=== PATIENT | female | born 1985 | race Caucasian/White ===

== ENCOUNTER 2018-07-03 03:16 | Emergency (ER) | payer BC, OTHER ==
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
[2018-07-03] MEDS ORDERED: NS 1,000 ML IV ONE (04:02)
[2018-07-03 04:10] LABS: PLATELET COUNT 285 10^3/uL (150-400)
[2018-07-03] MEDS ORDERED: IBUPROFEN 600 MG TAB PO ONE ×2 (07:27→07:29)
[2018-07-03 10:36] VITALS: BP 108/75
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
--- NOTE | 2018-07-03 13:02 | ASMTTCLDSP ---
TLC Discharge Disposition Disposition: Answers: Discharge If Answers: Yes DISCHARGED: Patient/family given suicide hotline info & SAMHSA brochure? Disposition Notes: Notes: Pt stated commitment or ability to keep self safe, denied thoughts/intentions to kill self or others. Pt stated strongly her desire to talk with a counselor and requested and was provided with literature on local bereavement support groups in [place]. Pt was given local hotline information and SAMHSA brochure After an Attempt and encouraged to follow up with [facility], as pt has [place] Medicaid, in process of applying for [place] Medicaid. Discharge Concerns/Recommendations: Notes: In consultation with [facility] ED physician, Chapin Palmer MD, Dr. Palmer concurred that pt does not appear to meet 27-65 criteria requiring psychiatric hospitalization as pt does not appear to be an imminent risk of harm to self/others/gravely disabled due to a mental illness condition. Dr. Palmer provided telephone order read back vacating M1 hold at 1015 hrs. Was patient given the Answers: Not applicable Inpatient Behavioral Health Prohibited Belongings List while in the ED? Psychiatrist vacating M1 Chapin Palmer MD Hold: Date and time M1 hold 07/03/2018 10:15 AM vacated (time format is hh:mm): Type of Hold: Answers: M1/72-hour Hold Hold initiated by: Answers: Police Date Signed: 07/03/2018 01:02 PM Electronically Signed By:Nathan Holman
== END 2018-07-03 10:36 | disposition home or self-care (01) ==
DX: R45.851 Suicidal ideations (principal); E86.9 Volume depletion, unspecified
CPT/HCPCS: 80305; G0480

== ENCOUNTER 2018-09-16 07:14 | Emergency (ER) | payer BC ==
--- NOTE | 2018-09-16 07:17 | EDPHY ---
H & P Time Seen by Provider: 09/16/18 07:16 - Medical/Surgical History Hx Asthma: Yes Hx Chronic Respiratory Disease: No Hx Diabetes: No Hx Cardiac Disease: No Hx Renal Disease: No Hx Cirrhosis: No Hx Alcoholism: No Hx HIV/AIDS: No Hx Splenectomy or Spleen Trauma: No Other PMH: ASTHMA - Social History Smoking Status: Never smoked Constitutional: Initial Vital Signs Temperature (C) 36.8 C 09/16/18 07:19 Heart Rate 96 09/16/18 07:19 Respiratory Rate 16 09/16/18 07:19 Blood Pressure 147/91 H 09/16/18 07:19 O2 Sat (%) 97 09/16/18 07:19 O2 Delivery Mode Room Air Allergies/Adverse Reactions: Penicillins Allergy (Verified 08/19/10 12:42) Home Medications: Medication Instructions Recorded ALBUTEROL SULFATE 08/19/10 Albuterol [Proventil Inhaler] 1 - 2 puffs IH Q4 #1 mdi 09/16/18 predniSONE 40 mg PO DAILY #10 tab 09/16/18 Medical Decision Making ED Course/Re-evaluation: CHIEF COMPLAINT: Asthma HISTORY OF PRESENT ILLNESS: Patient is a 33-year-old female with history of asthma complaining of running out of her albuterol inhaler today. The last week she has had bronchitis. She reports that she ran out of her albuterol inhalers. Due to the combination of the bronchitis in addition to the lack of albuterol inhalers, she decided to present to the emergency department today. No fever, headache, body aches, lightheadedness, chest pain, heart palpitations, abdominal pain, urinary or bowel complaints, numbness, paresthesias. REVIEW OF SYSTEMS: A comprehensive 10 system review of systems is otherwise negative aside from elements mentioned in the history of present illness and medical decision making. PHYSICAL EXAM: HR, BP, O2 Sat, RR. Temp noted General Appearance: Alert, well hydrated, appropriate, and non-toxic appearing. Head: Atraumatic without scalp tenderness or obvious injury Eyes: Pupils equal, round, reactive to light and accommodation, EOMI, no trauma , no injection. Ears: Clear bilaterally, no perforation, normal landmarks Nose: Atraumatic, no rhinorrhea, clear. Throat: There is no erythema or exudates, no lesions, normal tonsils, mucus membranes moist. Neck: Supple, 2+ carotid upstroke, nontender, no lymphadenopathy. Respiratory: Bilateral expiratory wheezes. No retractions, no distress, and no accessory muscle use. Cardiovascular: Regular rate and rhythm, no murmurs, rubs, or gallops. Bilateral carotid, radial, dorsalis pedis, and posterior tibial pulses intact. Good capillary refill all extremities. Gastrointestinal: Abdomen is soft, nontender, non-distended, no masses, no rebound, no guarding, no peritoneal signs. Musculoskeletal: Normal active ROM of all extremities, atraumatic. Neurological: Alert, appropriate, and interactive. The patient has normal DTRs and non-focal cranial nerves, motor, sensory, and cerebellar exam. Skin: No rashes, good turgor, no nodules on palpation. Past medical history: Asthma Past surgical history: Denies Family history: Denies Social history: Lives in [place], single, employed DIAGNOSTICS/PROCEDURES/CRITICAL CARE TIME: Not indicated DIFFERENTIAL DIAGNOSIS: The differential diagnosis for the patient's shortness of breath included but was not limited to asthma, pneumonia, myocardial infarction, acute mountain sickness, high altitude pulmonary edema, congestive heart failure, and pulmonary embolus. MEDICAL DECISION MAKING: Patient is a 33-year-old female with history of asthma presenting to the emergency department after running out of her albuterol inhaler today. She reports she has had bronchitis for the last week. On exam she has expiratory wheezes but is not systemically ill. DuoNeb and 60 mg p. O. Prednisone administered. I will also prescribe her prednisone and additional inhalers. I have advised her to follow up with a PCP. Return precautions provided; patient is comfortable with this plan. - Data Points Medications Given: Discontinued Medications Albuterol/Ipratropium (Duoneb) 3 ml IH EDNOW ONE Stop: 09/16/18 07:23 Last Admin: 09/16/18 07:23 Dose: 3 ml Albuterol/Ipratropium (Duoneb) 3 ml IH EDNOW ONE Stop: 09/16/18 07:23 Last Admin: 09/16/18 07:24 Dose: Not Given Prednisone (Prednisone) 60 mg PO EDNOW ONE Stop: 09/16/18 07:23 Last Admin: 09/16/18 07:25 Dose: 60 mg Departure - Departure Disposition: Home, Routine, Self-Care Clinical Impression: Acute bronchitis Qualifiers: Bronchitis organism: other organism Qualified Code(s): J20.8 - Acute bronchitis due to other specified organisms Asthma Qualifiers: Asthma severity: mild Asthma persistence: unspecified Asthma complication type : uncomplicated Qualified Code(s): J45.909 - Unspecified asthma, uncomplicated Condition: Good Instructions: Asthma (ED), Acute Bronchitis (ED) Additional Instructions: 1. Take prednisone as prescribed. 2. Use the inhaler as prescribed. 3. Follow-up with your primary doctor within 72 hours. 4. Return to the Emergency Department for fever, chest pain, shortness of breath , increasing pain or other worsening of condition. Referrals: [facility],. [Clinic] - As per Instructions Prescriptions: Albuterol [Proventil Inhaler] 1 - 2 puffs IH Q4 #1 mdi predniSONE 40 mg PO DAILY #10 tab Report Scribed for: Eder Soni Report Scribed by: Ainsley Cuevas Date of Report: 09/16/18 Time of Report: 07:31
[2018-09-16] MEDS ORDERED: IPRATROPIUM/ALBUTEROL 3 ML DEYVIAL ONE (07:18)
[2018-09-16] MEDS ORDERED: IPRATROPIUM/ALBUTEROL 3 ML DEYVIAL IH ONE ×2 (07:22)
[2018-09-16] MEDS ORDERED: predniSONE 20 MG TAB PO ONE (07:22)
[2018-09-16] MEDS ORDERED: ALBUTEROL INH PREPACK MDI TAKEHOME ONE (07:34)
[2018-09-16 07:43] VITALS: BP 136/90
== END 2018-09-16 07:43 | disposition home or self-care (01) ==
DX: J20.8 Acute bronchitis due to other specified organisms (principal); J45.909 Unspecified asthma, uncomplicated; Z88.0 Allergy status to penicillin
CPT/HCPCS: J7512